=== PATIENT | male | born 1990 | race Caucasian/White ===

== ENCOUNTER 2016-05-08 19:19 | Emergency (ER) | payer SELFPAY ==
[~2016-05-08] VITALS: Ht 175.3 cm; Wt 86.4 kg
[2016-05-08 19:34] VITALS: TEMP 98
[2016-05-08 20:59] VITALS: BP 144/80; PULSE 82
== END 2016-05-08 21:00 | disposition home or self-care (01) ==
LOC: COL.ER 19:19
DX: T15.02XA Foreign body in cornea, left eye, initial encounter (principal)

== ENCOUNTER 2017-02-03 21:57 | Emergency (ER) | payer BC ==
[~2017-02-03] VITALS: Ht 175.3 cm; Wt 88.6 kg
[2017-02-03 22:01] VITALS: BP 154/78; TEMP 99
[2017-02-03 22:27] VITALS: PULSE 79
== END 2017-02-03 22:27 | disposition home or self-care (01) ==
LOC: COL.ER 21:57
DX: S00.212A Abrasion of left eyelid and periocular area, initial encounter (principal); W54.8XXA Other contact with dog, initial encounter; Y92.009 Unspecified place in unspecified non-institutional (private) residence as the place of occurrence of the external cause